=== PATIENT | male | born 1950 | race Asian ===

== ENCOUNTER 2017-01-21 12:53 | Outpatient (RCR) | payer MEDICARE, BC, OTHER ==
[~2017-01-21 12:53] MED LIST: ATIVAN1 MG ORAL; CARDURA4 MG ORAL; DIOVAN40 MG ORAL; FIBERCON625 M1 PO; LANTUS5 UNITS SUBQ; LOPRESSOR25 M1 ORAL; MACROBID100 MG ORAL; METFORMIN HCL1000 M1 ORAL; METOPROLOL SUC100 MG ORAL; NOVOLOG100 UNIT/3 SUBQ; SIMVASTATIN40 MG ORAL; XARELTO10 MG ORAL
== END 2017-01-31 | disposition home or self-care (01) ==
LOC: WCC 12:53
DX: L89.159 Pressure ulcer of sacral region, unspecified stage (principal); G82.21 Paraplegia, complete; I11.0 Hypertensive heart disease with heart failure; I50.9 Heart failure, unspecified; E11.9 Type 2 diabetes mellitus without complications; Z86.718 Personal history of other venous thrombosis and embolism
CPT/HCPCS: G0463